=== PATIENT | female | born 1985 | race Two or more races ===

== ENCOUNTER 2022-10-23 16:59 | Emergency (ER) | payer MEDICAID, SELFPAY ==
--- NOTE | ~2022-10-23 | CT_ITS ---
EXAMINATION: CT HEAD WITHOUT CONTRAST CLINICAL INFORMATION: New onset of headaches COMPARISON: None. TECHNIQUE: Contiguous axial imaging was performed from the skull base to vertex without intravenous administration of contrast. Coronal and sagittal reformatted images are performed at the CT scanner. [This CT examination was performed using dose optimization techniques as appropriate, variously including the following: *Automated exposure control *Adjustment of mA and/or kV according to patient size (this includes techniques or standardized protocols for targeted exams where dose is matched to indication/reason for exam; i.e. extremities or head) *Use of iterative reconstruction technique] DLP: 682 mGy-cm. FINDINGS: There is no evidence of acute intracranial hemorrhage or territorial infarction. No abnormal mass-effect or midline shift is seen. Green to white matter differentiation is well preserved. No extra-axial fluid collections are identified. The ventricles are normal in size. There is no abnormal attenuation within the brain parenchyma. There is no osseous abnormality. The mastoid air cells and visualized portions of the paranasal sinuses are well-aerated. CT/CT head/brain wo IV con IMPRESSION: No acute intracranial pathology.
[2022-10-23 17:05] VITALS: BP 130/79; PULSE 100; RESP 18; TEMP 37.4; O2SAT 100; BMI 34.7
--- NOTE | 2022-10-23 17:09 | ED.URI ---
HPI - URI/Sore Throat General Chief Complaint: Upper Respiratory Symptoms <ALVIN Cordero - Last Filed: 10/23/22 17:13> Stated Complaint: headache w/ n/v, congestion/ sore throat <ALVIN Cordero - Last Filed: 10/23/22 17:13> Time Seen by Provider: 10/23/22 17:21 <ALVIN Cordero - Last Filed: 10/23/22 17:13> Source: patient <Jacquelin Peterson MD - Last Filed: 10/23/22 19:03> Mode of arrival: ambulatory <Jacquelin Peterson MD - Last Filed: 10/23/22 19:03> Limitations: no limitations <Jacquelin Peterson MD - Last Filed: 10/23/22 19:03> History of Present Illness HPI Narrative: Patient comes to emergency room complaining of 1 and half weeks of nasal congestion, severe headaches and vomiting. Patient states that he also has had diarrhea. No abdominal pain, no fever chills. Patient states that she has tried multiple [id number]-his-wsnzmva medications including ibuprofen without any relief. Patient states that she is not prone to having headaches and is very concerned about this headache which is making her nauseous. Patient denies neck pain or stiffness, denies rash. <Jacquelin Peterson MD - Last Filed: 10/23/22 19:03> Related Data Home Medications: Previous Rx's Medication Instructions Recorded ibuprofen 600 mg tablet 600 mg PO TID PRN fever or pain 10/23/22 #20 tabs ondansetron 4 mg disintegrating 4 mg PO Q6H PRN nausea and 10/23/22 tablet vomiting #14 tabs <ALVIN Cordero - Last Filed: 10/23/22 17:13> Allergies/Adverse Reactions: Allergies Allergy/AdvReac Type Severity Reaction Status Date / Time Penicillins [PCN] Allergy Rash Verified 10/23/22 17:13 <ALVIN Cordero - Last Filed: 10/23/22 17:13> Review of Systems Review of Systems: Constitutional : No Weight loss, No Fever, No Chills, No Night Sweats, No Fatigue, No Malaise ENT/Mouth : No Hearing loss, No Ear Pain, complaining of Nasal Congestion and frontal sinus pressure, No Hoarseness, No sore throat, No Rhinorrhea, No Swallowing Difficulty Eyes: No Eye Pain, No Swelling, No Redness, No Foreign Body, No Discharge, No Vision Changes Cardiovascular : No Chest Pain, No SOB, No Dyspnea on Exertion, No Orthopnea, No Edema, No Palpitations Respiratory : No Cough, No Sputum, No Wheezing, No Smoke Exposure, No Dyspnea Gastrointestinal : No Nausea, No Vomiting, No Diarrhea, No Constipation, No abdominal Pain, No Hematochezia, No Melena Genitourinary : no irregular bleeding, No Dysuria, No Urinary Frequency, No Hematuria, No Urinary Incontinence, No Urgency, No Flank Pain, No Urinary Flow Changes, No Hesitancy Musculoskeletal : No joint pain, No Myalgias, No Joint Swelling Skin : No Skin Lesions, No rash Neuro : No Weakness, No Numbness, No Paresthesias, No Loss of Consciousness, No Dizziness, complaining of Headache Psych : No Anxiety/Panic, No Depression, No SI/HI/AH/VH, No Social Issues, Heme/Lymph: No Bruising, No Bleeding,No Lymphadenopathy Endocrine : No Polyuria, No Polydipsia, No Temperature Intolerance <Jacquelin Peterson MD - Last Filed: 10/23/22 19:03> [facility] Social History Social History: Social History Advance Directives: No Advance Directives Information Provided: No <ALVIN Cordero - Last Filed: 10/23/22 17:13> Physical Exam Vital Signs: Vital Signs: Last Vital Signs Temp 99.3 F 10/23/22 17:05 Pulse 100 10/23/22 17:05 Resp 18 10/23/22 17:05 BP 130/79 10/23/22 17:05 Pulse Ox 100 10/23/22 17:05 O2 Del Method 10/23/22 17:05 BMI result Body Mass Index 34.7 <ALVIN Cordero - Last Filed: 10/23/22 17:13> Vital Signs: Last Vital Signs Temp 99.3 F 10/23/22 17:05 Pulse 100 10/23/22 17:05 Resp 18 10/23/22 17:05 BP 130/79 10/23/22 17:05 Pulse Ox 100 10/23/22 17:05 O2 Del Method 10/23/22 17:05 BMI result Body Mass Index 34.7 <Jacquelin Peterson MD - Last Filed: 10/23/22 19:03> Const: Other: Appearance: Alert. Oriented X3. No acute distress. Well appearing Eyes: Pupils equal, round and reactive to light. ENT: Pharynx normal. Neck: Normal inspection. Neck supple. No lymph nodes noted. No crepitus, normal range of motion, no pain or stiffness with flexion and extension CVS: Normal heart rate and rhythm. Pulses normal. Normal S1 and S2 Respiratory: No respiratory distress. Breath sounds normal. No Wheezing. No rales Abdomen: Soft and nontender. No rigidity. No distention. Skin: Skin warm and dry. Normal skin color. Normal skin turgor. Extremities: No lower extremity edema. No Lacerations. No Rash Neuro: Oriented X 3. No motor deficit. No sensory deficit. Moving all extremities. No slurred speech. CN 2 through 12 grossly intact Psych: calm, cooperative, normal affect <Jacquelin Peterson MD - Last Filed: 10/23/22 19:03> Course Course Course Narrative: RME- 17:13pm 37yoF presenting to the ED c c/o of headaches x 1 week now c nasal congestion, sore throat, coughing, N/V since Friday. Daughter with similar symptoms and had a negative COVID-19 pt reports her daughter has been sick since . Pt reports she is very concern for her headache. Reports she normally does not get headaches. Denies fevers, CP/SOB, recent travel or any other sick contacts. Plan: COVID/RSV/flu swab. Patient will be sent back to the waiting room to be evaluated in [facility]. <ALVIN Cordero - Last Filed: 10/23/22 17:13> Medications Administered Discontinued Medications Generic Name Dose Route Start Last Admin Trade Name Freq PRN Reason Stop Dose Admin Ketorolac Tromethamine 60 mg 10/23/22 17:33 10/23/22 18:03 Ketorolac Tromethamine 60 Mg/2 Ml Vial IM 10/23/22 17:34 60 mg ONCE ONE Administration Metoclopramide HCl 5 mg 10/23/22 17:33 10/23/22 18:25 Metoclopramide Hcl 5 Mg Tablet PO 10/23/22 17:34 5 mg ONCE ONE Administration <ALVIN Cordero - Last Filed: 10/23/22 17:13> Medications Administered Discontinued Medications Generic Name Dose Route Start Last Admin Trade Name Michael PRN Reason Stop Dose Admin Ketorolac Tromethamine 60 mg 10/23/22 17:33 10/23/22 18:03 Ketorolac Tromethamine 60 Mg/2 Ml Vial IM 10/23/22 17:34 60 mg ONCE ONE Administration Metoclopramide HCl 5 mg 10/23/22 17:33 10/23/22 18:25 Metoclopramide Hcl 5 Mg Tablet PO 10/23/22 17:34 5 mg ONCE ONE Administration <Jacquelin Peterson MD - Last Filed: 10/23/22 19:03> Medical Decision Making Medical Decision Making MDM Narrative: Patient tested negative for influenza, RSV, COVID and strep. Head CT negative. Patient likely having a viral syndrome. <Jacquelin Peterson MD - Last Filed: 10/23/22 19:03> Lab Data [facility] Lab Attestation statement: I reviewed the patient's lab results. <Jacquelin Peterson MD - Last Filed: 10/23/22 19:03> Labs: Lab Results 10/23/22 10/23/22 Range/Units 17:16 17:17 Influenza Type A (PCR) NEGATIVE (Negative) Influenza Type B (PCR) NEGATIVE (Negative) RSV RNA Qual (PCR) NEGATIVE (Negative) SARS-CoV-2 RNA (RT-PCR) NEGATIVE (Negative) S. pyogenes GrpA JOHNATHAN Negative (Negative) <ALVIN Cordero - Last Filed: 10/23/22 17:13> Lab Results 10/23/22 10/23/22 Range/Units 17:16 17:17 Influenza Type A (PCR) NEGATIVE (Negative) Influenza Type B (PCR) NEGATIVE (Negative) RSV RNA Qual (PCR) NEGATIVE (Negative) SARS-CoV-2 RNA (RT-PCR) NEGATIVE (Negative) S. pyogenes GrpA JOHNATHAN Negative (Negative) <Jacquelin Peterson MD - Last Filed: 10/23/22 19:03> Independent Interpretation I performed an independent interpretation of an: CT Scan <Jacquelin Peterson MD - Last Filed: 10/23/22 19:03> Interpretation: Interpretation: No acute abnormalities <Jacquelin Peterson MD - Last Filed: 10/23/22 19:03> Radiology Impression Discussion of test interpretation with radiology: I have reviewed the radiologist's reading. <Jacquelin Peterson MD - Last Filed: 10/23/22 19:03> Radiologist Impression: FINDINGS: There is no evidence of acute intracranial hemorrhage or territorial infarction. No abnormal mass-effect or midline shift is seen. Green to white matter differentiation is well preserved. No extra-axial fluid collections are identified. The ventricles are normal in size. There is no abnormal attenuation within the brain parenchyma. There is no osseous abnormality. The mastoid air cells and visualized portions of the paranasal sinuses are well-aerated. ? CT/CT head/brain wo IV con IMPRESSION: No acute intracranial pathology. ? <Jacquelin Peterson MD - Last Filed: 10/23/22 19:03> Discharge Plan Discharge Clinical Impression: Upper respiratory infection, Headache <ALVIN Cordero - Last Filed: 10/23/22 17:13> Patient Disposition: Home, Self-Care <ALVIN Cordero - Last Filed: 10/23/22 17:13> Instructions: Acute Headache (ED), Viral Syndrome (ED) <ALVIN Cordero - Last Filed: 10/23/22 17:13> Additional Instructions: Please follow-up with your primary care physician tomorrow. If you have any worsening or new symptoms, please return to the emergency room or call 911 <ALVIN Cordero - Last Filed: 10/23/22 17:13> Prescriptions: New ondansetron 4 mg tablet,disintegrating 4 mg PO Q6H PRN (Reason: nausea and vomiting) Qty: 14 0RF ibuprofen 600 mg tablet 600 mg PO TID PRN (Reason: fever or pain) Qty: 20 0RF <ALVIN Cordero - Last Filed: 10/23/22 17:13>
[2022-10-23 17:35] LABS: IDNOW Serial# 6674DD1D; Strep A Nucleic Acid Negative (Negative)
[2022-10-23] MEDS: Ketorolac Tromethamine 60 MG/2 ML VIAL IM (18:03)
[2022-10-23 18:06] LABS: Influenza A PCR NEGATIVE (Negative); Influenza B PCR NEGATIVE (Negative); Resp Syncy Virus RNA Qual PCR NEGATIVE (Negative); SARS COV2 PCR INHOUSE NEGATIVE (Negative)
[2022-10-23] MEDS: Metoclopramide HCl 5 MG TABLET PO (18:25)
[2022-10-23 19:04] VITALS: BP 141/84; PULSE 83; RESP 16; TEMP 36.8; O2SAT 97
== END 2022-10-23 19:14 | disposition home or self-care (01) ==
PROVIDERS: Physician Assistant Medical; Emergency Provider Emergency Medicine; PCP Family Medicine
DX: J06.9 Acute upper respiratory infection, unspecified (principal); R51.9 Headache, unspecified; Z20.822 Contact with and (suspected) exposure to COVID-19; Z20.828 Contact with and (suspected) exposure to other viral communicable diseases
CPT/HCPCS: 0241U; 36415; 70450; 87651; 96372; 99283; 99284; J1885

== ENCOUNTER 2023-01-09 10:19 | Emergency (ER) | payer OTHER, SELFPAY ==
[2023-01-09 10:34] VITALS: BP 151/91; PULSE 100; RESP 18; TEMP 36.8; O2SAT 99; BMI 33.8
--- OUTSIDE RECORDS SUMMARY | 2023-01-09 11:31 | XMS_ITS | Continuity of Care Document ---
Author Name Unknown Organization [facility] ter Address [address] [place] [address]- Care Team Providers Care Customer Liaison Name Role Phone Harmeet MOORE, Edil Crawley Primary Care Physician [place] [facility] [place] - 10/04/[address] [address]- [facility] Attending Physician: Serina Townsend MD Allergies, Adverse Reactions, Alerts Substance Reaction Severity Status penicillin Active Immunizations Given and Recorded Vaccine Date Status Refusal Reason Influenza Virus Vaccine (oldterm) 1 11/17/13 Given tetanus/diphtheria/pertussis, acel(Tdap) 11/19/10 Given 1Admin Note: declined Medications Flonase 50 mcg/inh nasal spray 2 sprays, Nares, Both, Daily, # 1 each, 11 Refills, Maintenance, 07/21/17 13:56:49, [place], 2 spraysNares, Both Daily,x30 days Start Date: 07/21/17 Stop Date: 07/16/18 Status: Ordered Ibuprofen Refills 0, Maintenance, 04/09/19 13:57:09 EDT Start Date: 04/09/19 Status: Ordered Multivitamin By Mouth, Daily, 0 Refills, Maintenance, 05/17/14 8:15:30 Start Date: 05/17/14 Status: Ordered Vitamin D3 By Mouth, 0 Refills, Maintenance, 05/17/14 8:15:24 Start Date: 05/17/14 Status: Ordered Problem List Condition Effective Dates Status Health Status Inform ant Acute sinusitis(Confirmed) Active Environmental and seasonal allergies(Confirmed) Active Anxiety(Confirmed) Active Chronic constipation(Confirmed) Active Hirsutism(Confirmed) Active Vitamin D Deficiency(Confirmed) Active Social History Social History Type Response Smoking Status Never smoker entered on: 08/23/14 Sex
--- OUTSIDE RECORDS SUMMARY | 2023-01-09 11:31 | XMS_ITS | Continuity of Care Document ---
Author Name Unknown Organization [facility] ter Address [address] [place] [address]- Care Team Providers Care Cost Accounting Analyst Name Role Phone Harmeet MOORE, Edil Crawley Primary Care Physician [place] [facility] [place](s[place]/02/22 - 04/02/[address] [address]- Discharge Disposition: A-D/C Home Attending Physician: Marry Emanuel MD Admitting Physician: Marry Emanuel MD Referring Physician: Marry Emanuel MD Allergies, Adverse Reactions, Alerts Substance Reaction Severity Status penicillin itchiness Active Immunizations Given and Recorded Vaccine Date Status Refusal Reason SARS-CoV-2 (COVID-19) mRNA BNT-162b2 vac 01/07/22 Recorded SARS-CoV-2 (COVID-19) mRNA BNT-162b2 vac 05/01/21 Recorded SARS-CoV-2 (COVID-19) mRNA BNT-162b2 vac 04/04/21 Recorded Influenza Virus Vaccine (oldterm) 1 08/16/20 Recor ded Influenza Virus Vaccine (oldterm) 2 11/17/13 Given tetanus/diphtheria/pertussis, acel(Tdap) 11/01/19 Recorded tetanus/diphtheria/pertussis, acel(Tdap) 11/19/10 Given 1Result Comment: flucelvax inj [facility] 2Admin Note: declined Medications 10/25 oral tablet 1 tablet, By Mouth, Daily, # 30 tablet, 0 Refills, Maintenance, 04/18/21 9:09:00 EDT, Partial fill upon patient request if the prescription is for a schedule II opioid drug. Start Date: 7/14/21 Status: Ordered Multivitamin By Mouth, Daily, 0 Refills, Maintenance, 05/17/14 8:15:30 Start Date: 05/17/14 Status: Ordered Vitamin D3 1000 I.U., By Mouth, Daily in AM, 0 Refills, Maintenance, 05/17/14 8:15:24 EDT Start Date: 05/17/14 Status: Ordered Problem List Condition Effective Dates Status Health Status Inform ant Acute sinusitis(Confirmed) Active Environmental and seasonal allergies(Confirmed) Active Anxiety(Confirmed) Active Chronic constipation(Confirmed) Active Hirsutism(Confirmed) Active Obese class II(Confirmed) Active TMJ syndrome(Confirmed) Active Vitamin D Deficiency(Confirmed) Active Vital Signs Most recent to oldest [Reference Range]: 1 2 3 Height 157.48 cm (04/02/22 6:13 AM) 157.48 cm (03/29/22 12:07 PM) Weight 88.6 kg (04/02/22 6:13 AM) 88.64 kg (03/29/22 12:07 PM) Oxygen Saturation [94-100 %] 97 % (04/02/22 11:00 AM) 96 % (04/02/22 10:45 AM) 97 % (04/02/22 10:30 AM) Pulse Rate [55-90 bpm] 84 bpm (04/02/22 6:13 AM) Body Mass Index [18.5-24.99] 35.73 *>HHI* (04/02/22 6:13 AM) 35.74 *>HHI* (03/29/22 12:07 PM) Blood Pressure [90-138/55-84 mm Hg] 103/67mm Hg (04/02/22 11:00 AM) 110/68mm Hg (04/02/22 10:45 AM) 109/67mm Hg (04/02/22 10:30 AM) Respiratory Rate [16-30 br/min] 20 br/min (04/02/22 11:00 AM) 16 br/min (04/02/22 10:45 AM) 17 br/min (04/02/22 10:30 AM) Temperature [96.8-100.4 DegF] 97.5 DegF (04/02/22 11:00 AM) 98.0 DegF (04/02/22 9:00 AM) 97.9 DegF (04/02/22 6:13 AM) Liters per Minute 4 L/min (04/02/22 9:30 AM) 4 L/min (04/02/22 9:15 AM) 4 L/min (04/02/22 9:00 AM) Mode of Delivery (Oxygen) Room air (04/02/22 11:00 AM) Room air (04/02/22 10:30 AM) Room air (04/02/22 10:15 AM) Blood pressure sites Arm, left (04/02/22 11:00 AM) Arm, left (04/02/22 10:45 AM) Arm, left (04/02/22 10:30 AM) Temperature Route Temporal (04/02/22 11:00 AM) Temporal (04/02/22 9:00 AM) Temporal (04/02/22 6:13 AM) Dry Weight 88.6 kg (04/02/22 6:13 AM) 88.64 kg (03/29/22 12:07 PM) Weight Obtained Via Standing scale (04/02/22 6:13 AM) Patient/family stated (03/29/22 12:07 PM) Dry Weight Obtained Via Standing scale (04/02/22 6:13 AM) Patient/family stated (03/29/22 12:07 PM) Social History Social History Type Response Smoking Status Never smoker entered on: 08/23/14 Sex
--- OUTSIDE RECORDS SUMMARY | 2023-01-09 11:31 | XMS_ITS | Continuity of Care Document ---
Author Name Unknown Organization [facility] Address [address] [place] [address]- Care Team Providers Care Field Crop Farmer Name Role Phone Edil Ga MD Primary Care Physician [phone] [id number]14[facility] Adult [address] [place] [address]- Attending Physician: Edil Ga MD Allergies, Adverse Reactions, Alerts Substance Reaction Severity Status penicillin Active Immunizations Given and Recorded Vaccine Date Status Refusal Reason Influenza Virus Vaccine (oldterm) 1 08/16/20 Recor ded Influenza Virus Vaccine (oldterm) 2 11/17/13 Given tetanus/diphtheria/pertussis, acel(Tdap) 11/19/10 Given 1Result Comment: flucelvax inj [facility] 2Admin Note: declined Medications Flonase 50 mcg/inh nasal spray 2 sprays, Nares, Both, Daily, # 1 each, 11 Refills, Maintenance, 07/21/17 13:56:49, [place], 2 spraysNares, Both Daily,x30 days Start Date: 07/21/17 Stop Date: 07/16/18 Status: Ordered Multivitamin By Mouth, Daily, 0 [...]
--- OUTSIDE RECORDS SUMMARY | 2023-01-09 11:31 | XMS_ITS | Continuity of Care Document ---
Author Name Unknown Organization [facility] [place] Address [address] [place] [address]- Care Team Providers Care Patient Transport Officer Name Role Phone Harmeet MOORE, Edil Crawley Primary Care Physician [phone] [place] [facility] [place] [facility] Adult [address] [place] [address]- [facility] Attending Physician: Admtr, Ar8 Admitting Physician: Admtr, Ar8 Referring Physician: Admtr, Ar8 Allergies, Adverse Reactions, Alerts Substance Reaction Severity Status penicillin Active Immunizations Given and Recorded Vaccine Date Status Refusal Reason Influenza Virus Vaccine (oldterm) 1 11/17/13 Given tetanus/diphtheria/pertussis, acel(Tdap) 11/19/10 Given 1Admin Note: declined Medications Flonase 50 mcg/inh nasal spray 2 sprays, Nares, Both, Daily, # 1 each, 11 Refills, Maintenance, 07/21/17 13:56:49, [place], 2 spraysNares, Both Daily,x30 days Start Date: [...]
--- OUTSIDE RECORDS SUMMARY | 2023-01-09 11:31 | XMS_ITS | Continuity of Care Document ---
Author Name Unknown Organization [facility] [place] Address [address] [place] [address]- Care Team Providers Care Office Services Clerk Name Role Phone Harmeet MOORE, Edil Crawley Primary Care Physician Encounter [facility] [id number] Date(s): 02/14/21 - 02/21/21 [facility] Adult [address] [place] [address]- Encounter Diagnosis Left ear pain(Discharge Diagnosis) - 02/14/21 TMJ syndrome(Discharge Diagnosis) - 02/14/21 Attending Physician: Sabrina Wagoner NP Allergies, Adverse Reactions, Alerts Substance Reaction Severity Status penicillin Active Immunizations Given and Recorded Vaccine Date Status Refusal Reason Influenza Virus Vaccine (oldterm) 1 08/16/20 Recor ded Influenza Virus Vaccine (oldterm) 2 11/17/13 Given tetanus/diphtheria/pertussis, acel(Tdap) 11/19/10 Given 1Result Comment: flucelvax inj [facility] shop 2Admin Note: declined Medications Multivitamin By Mouth, Daily, 0 Refills, Maintenance, 05/17/14 8:15:30 Start Date: 05/17/14 Status: Ordered Vitamin D3 By Mouth, 0 Refills, Maintenance, 05/17/14 8:15:24 Start Date: 05/17/14 Status: Ordered Problem List Condition Effective Dates Status Health Status Inform ant Acute sinusitis(Confirmed) Active Environmental and seasonal allergies(Confirmed) Active Anxiety(Confirmed) Active Chronic constipation(Confirmed) Active Hirsutism(Confirmed) Active TMJ syndrome(Confirmed) Active Vitamin D Deficiency(Confirmed) Active Diagnosis Diagnosis Type Effective Dates Health Status Cl inical Service Informant Left ear pain Discharge Diagnosis 02/14/21 TMJ syndrome Discharge Diagnosis 02/14/21 Vital Signs Most recent to oldest [Reference Range]: 1 Height 163 cm (02/14/21 8:53 AM) Weight 86.3 kg (02/14/21 8:53 AM) Oxygen Saturation [94-100 %] 99 % (02/14/21 8:53 AM) Pulse Rate [55-90 bpm] 84 bpm (02/14/21 8:53 AM) Body Mass Index [18.5-24.99] 32.48 *>HHI* (02/14/21 8:53 AM) Blood Pressure [90-138/55-84 mm Hg] 98/6 8mm Hg (02/14/21 8:53 AM) Temperature [96.8-100.4 DegF] 98.5 DegF (02/14/21 8:53 AM) Mode of Delivery (Oxygen) Room air (02/14/21 8:53 AM) Blood pressure sites Arm, right (02/14/21 8:53 AM) Temperature Route Oral (02/14/21 8:53 AM) Weight Obtained Via Standing scale (02/14/21 8:53 AM) Social History Social History Type Response Smoking Status Never smoker entered on: 08/23/14 Sex
--- OUTSIDE RECORDS SUMMARY | 2023-01-09 11:31 | XMS_ITS | Continuity of Care Document ---
Author Name Unknown Organization [facility] lt Address [address] [place] [address]- Care Team Providers Care Provider Education Specialist Name Role Phone Harmeet MOORE, Edil Crawley Primary Care Physician [place] [facility] [place] 06/20/21 - 07/20/21 [facility] Adult [address] [place] [address]- Allergies, Adverse Reactions, Alerts Substance Reaction Severity [...] a schedule II opioid drug. Start Date: 04/18/21 Status: Ordered Multivitamin By Mouth, Daily, 0 Refills, Maintenance, 05/17/14 8:15:30 Start Date: 05/17/14 Status: Ordered Vitamin D3 By Mouth, 0 Refills, Maintenance, 05/17/14 8:15:24 Start Date: 05/17/14 Status: Ordered Problem List Condition Effective Dates Status Health Status Inform ant Acute sinusitis(Confirmed) Active Environmental and seasonal allergies(Confirmed) Active Anxiety(Confirmed) Active Chronic constipation(Confirmed) Active Hirsutism(Confirmed) Active TMJ syndrome(Confirmed) Active Vitamin D Deficiency(Confirmed) Active Social History Social History Type Response Smoking Status Never smoker entered on: 08/23/14 Sex
--- OUTSIDE RECORDS SUMMARY | 2023-01-09 11:31 | XMS_ITS | Continuity of Care Document ---
Author Name Unknown Organization [facility] ter Address [address] [place] [address]- Care Team Providers Care Ultrasound Tech Name Role Phone Harmeet MOORE, Edil Crawley Primary Care Physician [phone] Encounter [facility] [id number] Date(s): 01/08/20 - 01/09/[address] [address]- [facility] Discharge Disposition: A-D/C Home Attending Physician: Marry [...] 1 each, 11 Refills, Maintenance, 07/21/17 13:56:49, [place], 2 spraysNares, Both Daily,x30 days Start Date: [...] Active Hirsutism(Confirmed) Active Vitamin D Deficiency(Confirmed) Active Vital Signs Most recent to oldest [Reference Range]: 1 2 3 Height 163 cm (01/09/20 9:50 AM) 163 cm (01/09/20 12:00 AM) 163 cm (01/08/20 5:18 AM) Weight 92.8 kg (01/08/20 5:18 AM) 92.8 kg (01/08/20 4:38 AM) Oxygen Saturation [94-100 %] 100 % (01/09/20 12:00 AM) Pulse Rate [55-90 bpm] 102 bpm *H* (01/09/20 9:50 AM) 91 bpm *H* (01/09/20 12:00 AM) 75 bpm (01/08/20:18 AM) Body Mass Index [18.5-24.99] 34.93 *>HHI* (01/08/20 5:18 AM) Blood Pressure [90-138/55-84 mm Hg] 125/79mm Hg (01/09/20 9:50 AM) 119/79mm Hg (01/09/20 12:00 AM) 115/50mm Hg (01/08/20 3:35 PM) Respiratory Rate [16-30 br/min] 18 br/min (01/09/20 11:00 AM) 18 br/min (01/09/20 11:00 AM) 18 br/min (01/09/20 9:50 AM) Temperature [96.8-100.4 DegF] 98.7 DegF (01/09/20 9:50 AM) 97.9 DegF (01/09/20 12:00 AM) 98.3 DegF (01/08/20 3:35 PM) Mode of Delivery (Oxygen) Room air (01/09/20 12:00 AM) Blood pressure sites Arm, left (01/09/20 12:00 AM) Arm, right (01/08/20 5:18 AM) Arm, right (01/08/20 4:47 AM) Temperature Route Oral (01/09/20 9:50 AM) Oral (01/09/20 12:00 AM) Oral (01/08/20 3:35 PM) Dry Weight 92.8 kg (01/08/20 5:18 AM) 92.8 kg (01/08/20 4:38 AM) Weight Obtained Via Standing scale (01/08/20 4:38 AM) Dry Weight Obtained Via Standing scale (01/08/20 4:38 AM) Sensory deficits None (01/08/20 5:18 AM) Mobility assistance Independent (01/08/20 5:18 AM) Social History Social History Type Response Smoking Status Never smoker entered on: 08/23/14 Sex
--- OUTSIDE RECORDS SUMMARY | 2023-01-09 11:31 | XMS_ITS | Continuity of Care Document ---
Author Name Unknown Organization [facility] ter Address [address] [place] [id number]- Care Team Providers Care Boilermaker Mechanic Name Role Phone Edil Ga MD Primary Care Physician Encounter [facility] [place] Date(s): 05/01/22 - 05/01/[address] [address] Attending Physician: Edil Ga MD Allergies, Adverse [...] stop and shop 2Admin Note: declined Medications Ashwagandha Ashwagandha, Refills 0, Maintenance, 04/22/22 10:30:00 EDT, Supply Start Date: 04/22/22 Status: Ordered June10/25 oral tablet 1 tablet, By Mouth, Daily, [...]
--- OUTSIDE RECORDS SUMMARY | 2023-01-09 11:31 | XMS_ITS | Continuity of Care Document ---
Author Name Unknown Organization [facility] [place] Address [address] [place] [address]- Care Team Providers Care Beef Tagger Name Role Phone Harmeet MOORE, Edil Crawley Primary Care Physician [phone] [id number] - [facility]/04/22 [facility] Adult [address] [place] [address]- Encounter Diagnosis Seasonal allergies(Discharge Diagnosis) - 03/28/22 Attending Physician: Surendra Horn MD Referring Physician: Yani Jones NP Allergies, Adverse Reactions, Alerts Substance Reaction [...] Dates Health Status Cl inical Service Informant Seasonal allergies Discharge Diagnosis 03/28/22 Social History Social History Type Response Smoking Status Never smoker entered on: 08/23/14 Sex
--- OUTSIDE RECORDS SUMMARY | 2023-01-09 11:31 | XMS_ITS | Continuity of Care Document ---
Author Name Unknown Organization [facility] ter Address [address] [place] [address]- Care Team Providers Care Tree Fruit And Nut Farming Supervisor Name Role Phone Harmeet MOORE, Edil Crawley Primary Care Physician [phone] Encounter [facility] [place] Date(s): 10/18/19 - 10/25/[address] [address]- [facility] Attending Physician: Serina Townsend MD Allergies, Adverse Reactions, Alerts Substance Reaction Severity Status penicillin Active Immunizations Given and Recorded Vaccine Date Status Refusal Reason Influenza Virus Vaccine (oldterm) 1 11/17/13 Given tetanus/diphtheria/pertussis, acel(Tdap) 11/19/10 Given 1Admin Note: declined Medications Flonase 50 mcg/inh nasal spray 2 sprays, Nares, Both, Daily, # 1 each, 11 Refills, Maintenance, 07/21/17 13:56:49, [place], 2 spraysNares, Both Daily,x30 days Start Date: [...]
--- OUTSIDE RECORDS SUMMARY | 2023-01-09 11:31 | XMS_ITS | Continuity of Care Document ---
Author Name Unknown Organization [facility] [place] Address [address] [place] [address]- Care Team Providers Care Special Education Director Name Role Phone Edil Ga MD Primary Care Physician [phone] [id number] 10[facility]19/20 [facility] Adult [address] [place] [address]- Attending Physician: Edil Ga MD Allergies, Adverse [...] 1 each, 11 Refills, Maintenance, 07/21/17 13:56:49, [place], 2 spraysNares, Both Daily,x30 days Start Date: [...]
--- OUTSIDE RECORDS SUMMARY | 2023-01-09 11:31 | XMS_ITS | Continuity of Care Document ---
Author Name Unknown Organization [facility] [place] Address [address] [place] [address]- Care Team Providers Care Senior Manager Quality Assurance Name Role Phone Harmeet MOORE, dEil Crawley Primary Care Physician [place] [facility] [place] Date(s): 10/23/22 - 11/22/22 [facility] Adult [address] [place] [address]- Allergies, Adverse Reactions, Alerts Substance Reaction Severity [...] EDT, Supply Start Date: 04/22/22 Status: Ordered Junel 10/25 oral tablet 1 tablet, By Mouth, [...] Date: 05/17/14 Status: Ordered Problem List Condition Confirmation Course Effective Dates Status H ealth Status Informant Acute sinusitis Confirmed Active Environmental and seasonal allergies Confirmed Active Anxiety Confirmed Active Chronic constipation Confirmed Active Hirsutism Confirmed Active Obese class II Confirmed Active TMJ syndrome Confirmed Active Vitamin D Deficiency Confirmed Active Social History Social History Type Response Smoking Status Never smoker entered on: 08/23/14 Sex Patient Care team information Care Team Personnel Name: Edil Ga MD [facility] Primary Care Physician Member Role: PCP Address: Address: [address] [place] [address]- Care Team Related Persons Name: JANY ALLEN Address: home [address] [place] [address] Name: OPHELIA VILLALOBOS Address: [address] Address: home [address] [place] [address] Name: OLYA DASILVA Address: home [address] [place] [address]
--- OUTSIDE RECORDS SUMMARY | 2023-01-09 11:31 | XMS_ITS | Continuity of Care Document ---
Author Name Unknown Organization [facility] [place] Address [address] [place] [address]- Care Team Providers Care Superior Court Justice Name Role Phone Edil Ga MD Primary Care Physician [phone] [id number]12[facility] - 02[facility]09[facility] Adult [address] [place] [address]- [facility] Attending Physician: Edil Ga MD Allergies, Adverse Reactions, Alerts Substance Reaction Severity Status penicillin Active Immunizations Given and Recorded Vaccine Date Status Refusal Reason Influenza Virus Vaccine (oldterm) 1 11/17/13 Given tetanus/diphtheria/pertussis, acel(Tdap) 11/19/10 Given 1Admin Note: declined Medications Flonase 50 mcg/inh nasal spray 2 sprays, Nares, Both, Daily, # 1 each, 11 Refills, Maintenance, 07/21/17 13:56:49, [place], 2 spraysNares, Both Daily,x30 days Start Date: [...]
--- OUTSIDE RECORDS SUMMARY | 2023-01-09 11:31 | XMS_ITS | Continuity of Care Document ---
Author Name Unknown Organization [facility] [place] Address [address] [place] [address]- Care Team Providers Care Plastic Extruding Machine Operator Name Role Phone Harmeet MOORE, Edil Crawley Primary Care Physician [phone] Encounter [facility] [place] Date(s): 09/19/20 - 10/19/20 [facility] Adult [address] [place] [address]- Attending Physician: Admbeverly, [id number] Admitting Physician: Admtr, Mihai Referring Physician: Admtr, [id number] Allergies, Adverse Reactions, [...] 1 each, 11 Refills, Maintenance, 07/21/17 13:56:49, [place], 2 spraysNares, Both Daily,x30 days Start Date: [...]
--- OUTSIDE RECORDS SUMMARY | 2023-01-09 11:31 | XMS_ITS | Continuity of Care Document ---
Author Name Unknown Organization [facility] [place] lt Address [address] [place] [address]- Care Team Providers Care Career Consultant Name Role Phone Edil Ga MD Primary Care Physician [id number]18[facility]21 - 04/25/21 [facility] Adult [address] [place] [address]- Attending Physician: Edil Ga MD Allergies, Adverse [...] oldest [Reference Range]: 1 Height 163 cm (04/18/21 8:30 AM) Weight 86.6 kg (04/18/21 8:30 AM) Oxygen Saturation [94-100 %] 98 % (04/18/21 8:30 AM) Pulse Rate [55-90 bpm] 71 bpm (04/18/21 8:30 AM) Body Mass Index [18.5-24.99] 32.59 *>HHI* (04/18/21 8:30 AM) Blood Pressure [90-138/55-84 mm Hg] 122/ 80mm Hg (04/18/21 8:30 AM) Temperature [96.8-100.4 DegF] 98.5 DegF (04/18/21 8:30 AM) Mode of Delivery (Oxygen) Room air (04/18/21 8:30 AM) Blood pressure sites Arm, right (04/18/21 8:30 AM) Temperature Route Oral (04/18/21 8:30 AM) Weight Obtained Via Standing scale (04/18/21 8:30 AM) Social History Social History Type Response Smoking Status Never smoker entered on: 08/23/14 Sex
--- OUTSIDE RECORDS SUMMARY | 2023-01-09 11:31 | XMS_ITS | Continuity of Care Document ---
Author Name Unknown Organization [facility] [place] lt Address [address] [place] [address]- Care Team Providers Care Senior Compensation Consultant Name Role Phone Edil Ga MD Primary Care Physician [id number] Date(s[facility] 04/22/22 - 04/29/22 [facility] Adult [address] [place] [address]- Attending Physician: Edil Ga MD Allergies, Adverse [...] and shop 2Admin Note: declined Medications Ashwagandha Francesdha, Refills 0, Maintenance, 04/22/22 10:30:00 EDT, Supply [...] recent to oldest [Reference Range]: 1 Height 159.3 cm (04/22/22 10:17 AM) Weight 89.1 kg (04/22/22 10:17 AM) Oxygen Saturation [94-100 %] 98 % (04/22/22 10:17 AM) Pulse Rate [55-90 bpm] 74 bpm (04/22/22 10:17 AM) Body Mass Index [18.5-24.99] 35.11 *>HHI* (04/22/22 10:17 AM) Blood Pressure [90-138/55-84 mm Hg] 117/ 79mm Hg (04/22/22 10:17 AM) Temperature [96.8-100.4 DegF] 98.6 DegF (04/22/22 10:17 AM) Mode of Delivery (Oxygen) Room air (04/22/22 10:17 AM) Blood pressure sites Arm, left (04/22/22 10:17 AM) Temperature Route Oral (04/22/22 10:17 AM) Weight Obtained Via Standing scale (04/22/22 10:17 AM) Social History Social History Type Response Smoking Status Never smoker entered on: 08/23/14 Sex
--- NOTE | 2023-01-09 11:46 | ED.GENADULT ---
HPI - General Adult General Chief complaint: Eye Problems Stated complaint: swollen eyes sore throat Time Seen by Provider: 01/09/23 11:42 Source: patient Limitations: no limitations History of Present Illness HPI narrative: Patient presents the ER with sore throat congestion nasal discharge right-sided ear pain recently being treated for conjunctivitis in the right eye at PCP. Positive sick contacts at home patient is without nausea vomiting on known fever. No recent travel history. Symptoms are [id number]. Patient felt that she had a reaction to the eyedrops with some minor lip swelling. Patient states that has since resolved. Patient is unsure the exact eyedrops she was put on. Related Data Previous Rx's Medication Instructions Recorded ibuprofen 600 mg tablet 600 mg PO TID PRN fever or pain 10/23/22 #20 tabs ondansetron 4 mg disintegrating 4 mg PO Q6H PRN nausea and 10/23/22 tablet vomiting #14 tabs erythromycin 5 mg/gram (0.5 %) eye 1 appl ophthalmic-Right TID 5 days 01/09/23 ointment #3.5 grams Allergies Allergy/AdvReac Type Severity Reaction Status Date / Time Penicillins [PCN] Allergy Rash Verified 10/23/22 17:13 Review of Systems Constitutional: Constitutional: Denies chills, Reports fatigue, Denies fever(s), Reports headache(s), Reports malaise and Denies weight loss Eyes: Eyes: Denies diplopia and Reports eye discharge Comments: Right eye redness ENT: Reports headache(s), Reports nasal congestion, Reports nasal discharge, Reports sinus pressure and Reports sore throat Cardiovascular: Cardiovascular: Denies chest pain and Denies dyspnea Respiratory: Respiratory: Denies cough, Denies pain with cough and Denies dyspnea Gastrointestinal: Gastrointestinal: Denies nausea and Denies vomiting Musculoskeletal: Musculoskeletal: Denies back pain and Denies numbness Neurologic: Reports headache(s) and Denies numbness Endocrine: Endocrine: Reports fatigue PMFSH Past Medical History Attestation statement: The following information was validated with the patient. Social History Social History Advance Directives: No Physical Exam ED Vital Signs: Vital Signs - 24 hr 01/09/23 10:34 Temperature 98.2 F Pulse Rate 100 Respiratory Rate 18 Blood Pressure 151/91 H Pulse Oximetry 99 Oxygen Delivery Method Room Air BMI result Body Mass Index 33.8 vital signs have been reviewed as normal and appeared to be correct. Blood pressure normal. Heart rate normal. Respiration rate normal. Temperature normal. Oxygen saturation normal. Appearance: Alert. Oriented X3. No acute distress. Head: Normal external exam. Normocephalic. Atraumatic. No Smith signs noted. No raccoon eyes noted Eyes: PERRLA. EOMI. sclera is injected on the right side yellow discharge ENT: slight erythema noted in the oral fast uvula is midline airways patent no facial edema noted. No peritonsillar abscess. Bilateral ears TMs sharp and intact no erythema Neck: Soft full range of motion CVS: Heart regular rate and rhythm no murmurs and rubs Respiratory: Breath sounds are clear to auscultation bilaterally. No accessory muscle use noted. Abdomen: Soft nontender no rebound or guarding positive bowel sounds Back: Full range of motion noted. Skin: Skin warm and dry. Normal skin color. Normal skin turgor. No rashes/lesions/lacerations noted. Extremities: No lower extremity edema. Extremities exhibit normal range of motion. Extremities nontender. Neuro: Oriented X 3. No motor deficit. No sensory deficit. Reflexes normal. Course Course Course Narrative: Acute pharyngitis COVID-19 Influenza Right eye conjunctivitis Allergic reaction Sinusitis 37-year-old female recently being treated for right eye conjunctivitis with questionable reaction to the eyedrops. Positive yellow discharge watery discharge and irritation. Patient also complaining of sore throat bilateral ear pain nasal congestion and sinus pressure. Swab for the throat and respiratory nasal swab are pending at this time. Patient will try to find out the exact name of the antibiotics for the right eye so we can change those at this time. patient will be instructed to stop of ofloxacin eyedrops at this time swabs are negative for pharyngitis and RSV COVID and influenza. Will treat for conjunctivitis Medical Decision Making Lab Data Labs: Lab Results 01/09/23 01/09/23 Range/Units 11:24 11:24 Influenza Type A (PCR) NEGATIVE (Negative) Influenza Type B (PCR) NEGATIVE (Negative) RSV RNA Qual (PCR) NEGATIVE (Negative) SARS-CoV-2 RNA (RT-PCR) NEGATIVE (Negative) S. pyogenes GrpA JOHNATHAN Negative (Negative) Discharge Plan Discharge Clinical Impression: Bacterial conjunctivitis Patient Disposition: Home, Self-Care Instructions: Conjunctivitis (ED) Additional Instructions: Stop Ofloxacin eyedrops Throat swab respiratory panel swabs negative for COVID-19 pharyngitis influenza and RSV Prescriptions: New erythromycin 5 mg/gram (0.5 %) ointment 1 appl ophthalmic-Right TID 5 Days Qty: 3.5 0RF No Action ondansetron 4 mg tablet,disintegrating 4 mg PO Q6H PRN (Reason: nausea and vomiting) Qty: 14 0RF ibuprofen 600 mg tablet 600 mg PO TID PRN (Reason: fever or pain) Qty: 20 0RF
[2023-01-09 12:03] LABS: IDNOW Serial# 6674DD1D; Strep A Nucleic Acid Negative (Negative)
[2023-01-09 12:27] LABS: Influenza A PCR NEGATIVE (Negative); Influenza B PCR NEGATIVE (Negative); Resp Syncy Virus RNA Qual PCR NEGATIVE (Negative); SARS COV2 PCR INHOUSE NEGATIVE (Negative)
== END 2023-01-09 12:57 | disposition home or self-care (01) ==
PROVIDERS: Emergency Provider Emergency Medicine; PCP Family Medicine
DX: H10.31 Unspecified acute conjunctivitis, right eye (principal); Z20.822 Contact with and (suspected) exposure to COVID-19; Z20.828 Contact with and (suspected) exposure to other viral communicable diseases; Z79.899 Other long term (current) drug therapy
CPT/HCPCS: 0241U; 87651; 99282; 99283

== ENCOUNTER 2024-06-13 10:47 | Emergency (ER) | payer OTHER, SELFPAY ==
--- NOTE | ~2024-06-13 | XR_ITS ---
EXAMINATION: XR HAND, RIGHT CLINICAL INFORMATION: Pain second/third digit to the elbow COMPARISON: None available. TECHNIQUE: PA, lateral, and oblique views of the right hand. FINDINGS: No evidence of acute fracture or malalignment. Joint spaces are well preserved. Normal bone mineralization. Soft tissues unremarkable. XR/XR hand RT min 3V IMPRESSION: Normal right hand radiographs. Electronically signed by: Hermann Schafer MD 06/13/2024 11:39 AM EDT
[2024-06-13 10:50] VITALS: BP 132/82; PULSE 87; RESP 17; TEMP 36.6; O2SAT 98; BMI 34.7
--- NOTE | 2024-06-13 11:13 | ED.GENADULT ---
HPI - General Adult General Chief complaint: General Medical Stated complaint: R arm numbness/hand pain Time Seen by Provider: 06/13/24 11:39 Source: patient, RN notes reviewed and old records reviewed Mode of arrival: ambulatory History of Present Illness ED Provider: Britney Zapien PA-C [facility] narrative: 38-year-old female with no significant past medical history presenting to the ED complaining of right hand pain with associated numbness/tingling radiating to forearm x1 week. Pain worse with movement. Denies known injury/trauma or fall. 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 Denies fever, chills, CP/SOB Related Data Previous Rx's ?Medication ?Instructions ?Recorded ibuprofen 600 mg tablet 600 mg PO TID PRN fever or pain 10/23/22 #20 tabs ondansetron 4 mg disintegrating 4 mg PO Q6H PRN nausea and 10/23/22 tablet vomiting #14 tabs erythromycin 5 mg/gram (0.5 %) eye 1 appl ophthalmic-Right TID 5 days 01/09/23 ointment #3.5 grams Allergies Allergy/AdvReac Type Severity Reaction Status Date / Time Penicillins [PCN] Allergy Rash Verified 06/13/24 10:51 Review of Systems Review of Systems: Yes all other systems are reviewed and are negative Constitutional: Constitutional: Reports as per [facility] Past Medical History Attestation statement: The following information was validated with the patient. Source: old records reviewed Social History Social History Advance Directives: No Advance Directives Information Provided: Yes Do you have a plan to hurt others: No Plan Physical Exam ED Vital Signs: Vital Signs - 24 hr 06/13/24 10:50 Temperature 98 F Pulse Rate 87 Respiratory Rate 17 Blood Pressure 132/82 Pulse Oximetry 98 Oxygen Delivery Method Room Air BMI result Body Mass Index 34.7 Const General: cooperative, healthy appearing and no acute distress Orientation/consciousness: patient oriented x3 Limitations: no limitations HENMT Head: Yes normal to inspection and Yes atraumatic Ears: hearing grossly normal bilaterally General nose exam: Normal external nose present Face and sinus: Yes normal facial exam Eyes General: appearance normal, both eyes and all related structures EOM: EOMs intact bilaterally Neck Neck: Yes normal visual inspection and Yes no meningeal signs Resp Effort & Inspection: normal respiratory effort and no respiratory distress Cardio Rate: regular rate Skin Rashes: no rashes Wounds: no wounds Neuro General: patient oriented x3, tone normal and no meningeal signs Cranial nerves: Yes CN's II-XII intact bilaterally Gait exam (Neuro): Normal gait present Extrem Other: RUE without appreciable deformity. Mild right wrist tenderness. No erythema or swelling. Neurovascularly intact. No snuffbox tenderness. Digits without tenderness. Full range of motion intact. Finger thumb opposition intact. + Phalen's sign General: Yes normal to inspection Course Course Course Narrative: RME performed by Shruthi Villarreal PA-C. Patient is a 38 year old assigned female at presenting to the emergency department with right hand pain/numbness. Detailed physical exam and review of systems are deferred to the intake clinician. Imaging ordered. Patient placed back in the waiting room pending room availability and results. XR hand RT min 3V IMPRESSION: Normal right hand radiographs. > volar wrist splints applied Results discussed with patient including worrisome signs and symptoms and strict return precautions, and when to return to the emergency department. They verbalized understanding and feel safe for discharge at this time. Procedures Orthopedic Splinting/Casting Injury #1: Side: right Upper Extremity Injury Location: wrist Upper Extremity Immobilizer: volar splint Medical Decision Making Medical Decision Making MDM Narrative: 38-year-old female with no significant past medical history presenting to the ED complaining of right hand pain with associated numbness/tingling radiating to forearm x1 week. On exam vital signs stable, NAD/nontoxic appearing, physical exam as noted above. Concern for carpal tunnel syndrome vs fracture or strain. No evidence of septic joint/arthritis. Low suspicion for DVT Plan: X-ray Please refer to course for remaining clinical decision making, interpretation of labs/imaging results, and discussions with consultants and/or family members. Differential Diagnosis Differential Diagnoses: The differential diagnosis associated with the presentation includes As above Independent Interpretation I performed an independent interpretation of an: Plain X-Ray Radiology Impression Discussion of test interpretation with radiology: I have reviewed the radiologist's reading. External Record Review External record reviewed: Inpatient record, Office record, Outpatient record, Prior outpatient labs, Prior outpatient radiology, Primary care record and Outside ED record Tests considered The following testing was considered but not selected: As above Prescription Management I considered prescription management with: Pain Medication Discharge Plan Discharge Clinical Impression: Acute carpal tunnel syndrome Patient Disposition: Home, Self-Care Instructions: Carpal Tunnel Surgery (DC) Additional Instructions: Your x-rays are unremarkable Wear wrist splint at home for comfort, especially at night Take Tylenol and ibuprofen Follow-up with Orthopedics If symptoms persist or worsen return to the ED Prescriptions: No Action ondansetron 4 mg tablet,disintegrating 4 mg PO Q6H PRN (Reason: nausea and vomiting) Qty: 14 0RF ibuprofen 600 mg tablet 600 mg PO TID PRN (Reason: fever or pain) Qty: 20 0RF erythromycin 5 mg/gram (0.5 %) ointment 1 appl ophthalmic-Right TID 5 Days Qty: 3.5 0RF Ref[place]: [facility] [Provider Group] Edil Ga MD [Primary Care Provider] - Print Language: Armenian
[2024-06-13 12:36] VITALS: BP 132/82; PULSE 87; RESP 17; TEMP 36.6; O2SAT 98
== END 2024-06-13 12:36 | disposition home or self-care (01) ==
PROVIDERS: Emergency Provider Emergency Medicine Emergency Medical Services; PCP Family Medicine
DX: G56.01 Carpal tunnel syndrome, right upper limb (principal); R20.0 Anesthesia of skin; M79.641 Pain in right hand
CPT/HCPCS: 29125; 73130; 99283; 99284

== ENCOUNTER 2024-07-05 08:57 | Outpatient (AMB) | payer OTHER, SELFPAY ==
--- NOTE | 2024-07-05 09:04 | A.OFFVIS_ITS ---
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 Patient express stabbing and sharp pains at her MCPs of her 2nd, 3rd, and 4th digits that radiates mainly into the 3rd digit PIP but some days also into the 2nd and 4th digit PIP. She has difficulty with pulling and grabbing objects due to her symptoms. When she over uses her had CTS says it is not middle finger, radiates to 2,3,4 digits pull grab things tried a brace but it did nothing for her hand, uses a glove for arthritis and helps her Allergies Penicillins [PCN] Allergy (Verified 07/05/24 09:06) Rash HPI HPI CONSULTING APPLICATION ENGINEER- ED f/u Right hand CTS: Details: Patient is a 39-year-old female who presents for ED follow-up for right hand pain and intermittent numbness and tingling. The patient reports that this pain has been ongoing for approximately 3 months and then she can not recall any particular insult or injury that incited this pain. She states his pain is located on the dorsal aspect of the right middle finger primarily, and occurs mostly when flexing to make a closed fist. Patient reports that she feels that this may have been due to cracking her knuckles in her right hand. Patient reports that she does experience weakness and intermittent diminished sensation in her right hand, particularly when attempting to lift anything heavy. Patient reports having no symptoms in the left hand. No other acute complaints or concerns at this time [facility] Social History (Updated 07/05/24 @ 09:07 by SAJI Donaldson) Alcohol intake: former Patient Tobacco Use Status: Never used Tobacco service: No Current occupational status: employed Current occupation: ANIMAL TECH / LEft hand dominant Review of Systems Const All systems reviewed & are unremarkable except as noted in HPI and below Physical Exam Vital Signs: BMI result Body Mass Index 35.3 Extrem Other: Patient is alert, oriented, and in no acute distress. Neuro: Normal sensation of the tips of all digits of the right hand at this time Vascular: Cap refill brisk Pain: Patient reports discomfort along the entire dorsal aspect of the right middle finger when making a closed fist, as well as some very mild tenderness to palpation of this area ROM: Patient is able to make a closed fist and extend all digits of the right hand fully Skin: No lacerations or abrasions. General: No ecchymosis, erythema, or evidence of infection. Psych: Appears grossly normal Affect normal Attitude cooperative Results Reviewed Results Reviewed: X-rays obtained in the office today and independently reviewed by me, Jorge L Pompa PA-C, demonstrate no fracture or acute bony abnormality of the right hand. Assessment & Plan Assessment & Plan (1) Tendinitis of extensor tendon of right hand: Code(s): M77.8 - Other enthesopathies, not elsewhere classified Category: Medical (2) Numbness and tingling of right hand: Code(s): R20.0 - Anesthesia of skin; R20.2 - Paresthesia of skin Category: Medical Plan 1. Right middle finger extensor tendinitis Ongoing for approximately 3 months Patient is educated about this condition and the typical recovery course At this time, the patient was referred to occupational hand therapy for range of motion, strengthening, stabilization of the joints of the right hand Patient is also educated on conservative pain management measures, such as rest, ice, elevation, and [id number] pain medication as needed Patient is educated that she continue to wear her stabilization glove as she feels this gives her good relief Patient is amenable to this plan 2. Right hand numbness and tingling Symptoms intermittent, not daily, worse 1st thing in the morning At this time, patient is referred for EMG and nerve conduction study of the right hand to assess the health of the nerves of the right upper extremity Patient is amenable to this plan Patient will follow-up after EMG and nerve conduction study for results review and discussion of further treatment options if indicated, sooner with any acute concerns Medications: Discontinued erythromycin Discontinued Reason: Patient no longer taking 1 appl ophthalmic-Right TID 5 days 3.5 grams 0RF Coding Level of Care Code New Pt Level 3 (06635) Diagnoses Tendinitis of extensor tendon of right hand M77.8 Numbness and tingling of right hand R20.0; R20.2
[2024-07-05 09:06] VITALS: BMI 35.3
== END 2024-07-05 09:39 | disposition home or self-care (01) ==
PROVIDERS: PCP Family Medicine
DX: M77.8 Other enthesopathies, not elsewhere classified (principal); R20.0 Anesthesia of skin; R20.2 Paresthesia of skin
CPT/HCPCS: 99203

== ENCOUNTER → 2024-07-05 08:57 | Outpatient (BNVA) | payer OTHER, SELFPAY | PROVIDERS: PCP Family Medicine | DX: M79.641 Pain in right hand (principal); M77.8 Other enthesopathies, not elsewhere classified; R20.0 Anesthesia of skin; R20.2 Paresthesia of skin | CPT/HCPCS: 99202 ==

== ENCOUNTER 2024-10-13 09:32 | Outpatient (REF) | payer OTHER, SELFPAY ==
--- NOTE | 2024-10-13 09:35 | EMG_ITS ---
Chief complaint: Right acute dorsal hand pain affecting 2nd and 3rd digits, denies numbness, weakness with presser first Reason for referral: Evaluate for Carpal Tunnel Syndrome Referred by: Ludivina ESQUIVEL/Jorge L ESQUIVEL Procedure done: Right upper extremity NCS/EMG Precautions and/or limitations: None The limb temperature was monitored continuously and remained between 32-36 degrees C during the performance of the NCS. Nerve Conduction Studies Anti Sensory Summary Table ?Stim Site NR Onset (ms) Norm Onset (ms) Peak (ms) Norm Peak (ms) O-P Amp (?V) Norm O-P Amp Site1 Site2 Delta-0 (ms) Dist (cm) Duong (m/s) Norm Duong (m/s) Right Median Anti Sensory (2nd Digit) Wrist ? 2.5 3.4 <3.6 41.7 >10 Wrist 2nd Digit 2.5 14.0 56 Right Ulnar Anti Sensory (5th Digit) Wrist ? 2.4 3.4 <3.7 17.8 >15.0 Wrist 5th Digit 2.4 14.0 58 Motor Summary Table ?Stim Site NR Onset (ms) Norm Onset (ms) O-P Amp (mV) Norm O-P Amp iAmp (mV) Amp (1st) (%) Site1 Site2 Delta-0 (ms) Dist (cm) Duong (m/s) Norm Duong (m/s) Right Median Motor (Abd Poll Brev) Wrist ? 3.6 <3.9 7.5 >4.5 9.3 100.0 Elbow Wrist 3.4 18.0 53 >45 Elbow ? 7.0 8.1 10.2 108.0 Right Ulnar Motor (Abd Dig Minimi) Wrist ? 3.0 <3.0 11.7 >5 15.0 100.0 B Elbow Wrist 3.1 18.0 58 >45 B Elbow ? 6.1 11.5 15.2 98.3 A Elbow B Elbow 1.9 10.0 53 >45 A Elbow ? 8.0 11.1 14.6 94.9 Comparison Summary Table ?Stim Site NR Peak (ms) Norm Peak (ms) P-T Amp (?V) Site1 Site2 Delta-P (ms) Norm Delta (ms) Right Median/Radial Dig I Comparison (Digit 1 - 10cm) Median ? 2.9 <2.9 62.9 Median Radial 0.2 Radial ? 2.7 <2.8 17.4 EMG ?Side Muscle Nerve Root Ins Act Fibs Psw Amp Dur Poly Recrt Int Pat Comment Right 1stDorInt Ulnar C8-T1 Nml Nml Nml Nml Nml 0 Nml Complete Right FlexCarRad Median C6-7 Nml Nml Nml Nml Nml 0 Nml Complete Right Biceps Musculocut C5-6 Nml Nml Nml Nml Nml 0 Nml Complete Right Triceps Radial C6-7-8 Nml Nml Nml Nml Nml 0 Nml Complete Right Deltoid Axillary C5-6 Nml Nml Nml Nml Nml 0 Nml Complete FINDINGS: All motor and sensory nerves tested showed normal latencies, amplitudes and conduction velocities. Concentric needle EMG was performed in selected muscles of the left upper extremity. Study did not reveal signs of electric abnormalities as shown in the table above. IMPRESSION: 1. This is a normal study. 2. There is no electrodiagnostic evidence for median neuropathy, ulnar neuropathy, brachial plexopathy, or cervical radiculopathy. Thank you for your kind referral. Georgette Angel MD, DEVIN Board Certified, [place] [employer] and [employer] (ABPMR) Board Certified, [place] [employer] Electro[employer]ostic [employer] (ABEM) CODIN [address] MTDD
== END 2024-10-13 09:33 | disposition home or self-care (01) ==
LOC: HO.NEURO 09:32
PROVIDERS: PCP Family Medicine; Visit Provider Physician Assistant
DX: R20.0 Anesthesia of skin (principal); R20.2 Paresthesia of skin
CPT/HCPCS: 95886; 95909

== ENCOUNTER → 2024-10-13 09:35 | Outpatient (BNV) | payer OTHER, SELFPAY | PROVIDERS: PCP Family Medicine; Visit Provider Physical Medicine & Rehabilitation | DX: M79.641 Pain in right hand (principal) | CPT/HCPCS: 95886; 95909 ==

== ENCOUNTER 2024-12-07 09:48 | Outpatient (AMB) | payer OTHER, SELFPAY ==
--- NOTE | 2024-12-07 09:59 | MHC.OFFVIS ---
Vital Signs 12/07/24 10:00 Height 5 ft 2 in Weight 193 lb BMI 35.3 Intake Visit Reasons: OV- EMG review RT hand Intake Note: Nabil is a 39 year old left hand dominant female who presents today for an EMG review of her right hand. EMG done on 10/13/2024 IMPRESSION: 1. This is a normal study. 2. There is no electrodiagnostic evidence for median neuropathy, ulnar neuropathy, brachial plexopathy, or cervical radiculopathy. Allergies Penicillins [PCN] Allergy (Verified 07/05/24 09:06) Rash HPI HPI OV- EMG review RT hand: Details: Nabil is a 39 year old left hand dominant female who presents today for an EMG review of her right hand. EMG done on 10/13/2024 IMPRESSION: 1. This is a normal study. 2. There is no electrodiagnostic evidence for median neuropathy, ulnar neuropathy, brachial plexopathy, or cervical radiculopathy. 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 Neuro: Normal sensation of the tips of all digits of the right hand at this time Vascular: Cap refill brisk Pain: Patient reports improved discomfort along the entire dorsal aspect of the right middle finger when making a closed fist ROM: Patient is able to make a closed fist and extend all digits of the right hand fully Skin: No lacerations or abrasions. General: No ecchymosis, erythema, or evidence of infection. Psych: Appears grossly normal Affect normal Attitude cooperative Assessment & Plan Assessment & Plan (1) Tendinitis of extensor tendon of right hand: Code(s): M77.8 - Other enthesopathies, not elsewhere classified Category: Medical (2) Numbness and tingling of right hand: Code(s): R20.0 - Anesthesia of skin; R20.2 - Paresthesia of skin Category: Medical Plan 2. Right hand numbness and tingling Symptoms intermittent, not daily, worse 1st thing in the morning At this time, patient is educated that due to having a negative EMG, no further acute intervention is indicated for her numbness and tingling Patient expresses that since her symptoms have improved, she is very thankful for this Patient was offered a course of occupational therapy, but declines, stating she can do exercises at home Patient will follow-up as needed with any acute concerns Coding Level of Care Code Est Pt Level 3 (77601) Diagnoses Tendinitis of extensor tendon of right hand M77.8 Numbness and tingling of right hand R20.0; R20.2
[2024-12-07 10:00] VITALS: BMI 35.3
== END 2024-12-07 10:16 | disposition home or self-care (01) ==
PROVIDERS: PCP Family Medicine
DX: M77.8 Other enthesopathies, not elsewhere classified (principal); R20.0 Anesthesia of skin; R20.2 Paresthesia of skin
CPT/HCPCS: 99213

== ENCOUNTER → 2024-12-07 09:48 | Outpatient (BNVA) | payer OTHER, SELFPAY | PROVIDERS: PCP Family Medicine | DX: M77.8 Other enthesopathies, not elsewhere classified (principal); R20.0 Anesthesia of skin; R20.2 Paresthesia of skin | CPT/HCPCS: 99212 ==

== ENCOUNTER 2024-12-07 18:59 | Emergency (ER) | payer OTHER, SELFPAY ==
[2024-12-07 19:27] VITALS: BP 137/83; PULSE 87; RESP 18; TEMP 36.5; O2SAT 99; BMI 34.9
--- NOTE | 2024-12-07 20:55 | ED.GENADULT ---
HPI - General Adult General Chief complaint: General Medical Stated complaint: right side sharp pain Related Data Previous Rx's ?Medication ?Instructions ?Recorded ibuprofen 600 mg tablet 600 mg PO TID PRN fever or pain 10/23/22 #20 tabs ondansetron 4 mg disintegrating 4 mg PO Q6H PRN nausea and 10/23/22 tablet vomiting #14 tabs Allergies Allergy/AdvReac Type Severity Reaction Status Date / Time Penicillins [PCN] Allergy Rash Verified 12/07/24 19:27 [facility] Social History Social History (Updated 07/05/24 @ 09:07 by SAJI Donaldson) Alcohol intake: former Patient Tobacco Use Status: Never used Tobacco Advance Directives: No Advance Directives Information Provided: No Do you have a plan to hurt others: No Plan service: No Current occupational status: employed 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 RME assessment and note performed by: Hui Ruiz PA-C this is a 39-year-old female who presents to the ER with complaints of right rib pain after repositioning her mother. She has tenderness palpation along her right lateral chest wall. plan: x-rays, further ER evaluation needed. Reevaluation(s) Reevaluation #1: Patient left without completing treatment. Discharge Plan Discharge Clinical Impression: Rib pain on right side Patient Disposition: Left W/O Completing Treatment Prescriptions: No Action ondansetron 4 mg tablet,disintegrating 4 mg PO Q6H PRN (Reason: nausea and vomiting) Qty: 14 0RF ibuprofen 600 mg tablet 600 mg PO TID PRN (Reason: fever or pain) Qty: 20 0RF Discharge Date/Time: 12/07/24 21:11
== END 2024-12-07 21:11 | disposition left against medical advice (07) ==
PROVIDERS: Emergency Provider Emergency Medicine Emergency Medical Services
DX: R07.81 Pleurodynia (principal)
CPT/HCPCS: 99281; 99283